=== PATIENT | male | born 2000 | race American Indian/Alaskan Native ===

== ENCOUNTER 2024-04-06 16:12 | Emergency (ER) | payer OTHER ==
[2024-04-06] MEDS ORDERED: Sodium Chloride 0.9% 10 ML Syringe FLUSH PRN (16:29)
[2024-04-06] MEDS: Dexamethasone 4 MG/ML SDV IVPUSH ONE (16:38)
[2024-04-06] MEDS: Ketorolac 30 MG/ML SDV IVPUSH ONE (16:38)
== END 2024-04-06 16:56 | disposition home or self-care (01) ==
LOC: DL.ED 16:12
DX: L23.7 Allergic contact dermatitis due to plants, except food (principal)
CPT/HCPCS: 96374; 96375; 99283; J1100; J1885; 99282

== ENCOUNTER 2025-04-30 16:35 | Emergency (ER) | payer MEDICAID ==
[2025-04-30] MEDS: Take Home: Acetaminophen/HYDROcodone 325-5 MG, 5 Tab Pack PO ONE (18:04)
[2025-04-30] MEDS: Ketorolac 30 MG/ML SDV IM ONE (18:04)
== END 2025-04-30 19:45 | disposition home or self-care (01) ==
LOC: DL.ED 16:35
DX: S89.92XA Unspecified injury of left lower leg, initial encounter (principal); X50.1XXA Overexertion from prolonged static or awkward postures, initial encounter; Y93.89 Activity, other specified
CPT/HCPCS: 73562; 96372; 99282; 99283; A9270; J1885